=== PATIENT | female | born 1945 | race Caucasian/White ===

== ENCOUNTER 2022-03-25 11:18 | Outpatient (CLI) | payer MEDICARE, OTHER, SELFPAY ==
--- NOTE | 2022-03-25 11:37 | MM_ITS ---
WS: [id number] BILATERAL SCREENING DIGITAL TOMOSYNTHESIS MAMMOGRAM WITH CAD HISTORY: SCREENING COMPARISON: 01/05/2012 Bilateral CC and MLO views with tomosynthesis and synthetic mammography submitted. Computer aided det ection analyzed. Breast composition: There are scattered areas of fibroglandular density. No suspicious masses, microc alcifications or architectural distortion. Benign calcifications and biopsy clip LEFT breast near 3:0 0. No interval change. MM/[place] [id number] IMPRESSION: BI-RADS: 2-Benign FOLLOW UP: 1 Year Follow-up
== END 2022-03-25 11:19 | disposition home or self-care (01) ==
LOC: RAD 11:21
PROVIDERS: Family Provider Family Medicine; Visit Provider Family Medicine
DX: Z12.31 Encounter for screening mammogram for malignant neoplasm of breast (principal)
CPT/HCPCS: 77063; 77067

== ENCOUNTER 2022-12-16 12:49 | Outpatient (CLI) | payer MEDICARE, OTHER, SELFPAY ==
--- NOTE | 2022-12-16 12:59 | XR_ITS ---
WS: [id number] SCREENING DEXA SCAN [employer] CLINICAL INFORMATION: POSTMENOPAUSAL COMPARISON: None. FINDINGS: The L1-L4 bone mineral density measures 1.131 g/cm2. This corresponds to a T score score of -0.4 and Z score of 0.2. Left femoral neck bone mineral density measures 0.867 g/cm2. This corresponds to a T score of -1.1 an d Z score of -0.2. Right femoral neck bone mineral density measures 0.859 g/cm2. This corresponds to a T score -1.2of an d Z score of -0.3. Mean femoral neck bone mineral density measures 0.863 g/cm2. This corresponds to a T score of -1.1 an d Z score of -0.2. IMPRESSION: Normal bone mineralization lumbar spine. Osteopenia femoral necks. Patient's FRAX calculated 10 year probability for major osteoporotic fracture is 24.2% and osteoporot ic hip fracture is 14.7%.
== END 2022-12-16 12:50 | disposition home or self-care (01) ==
PROVIDERS: PCP Family Medicine; Visit Provider Family Medicine
DX: Z13.820 Encounter for screening for osteoporosis (principal); Z78.0 Asymptomatic menopausal state; M85.852 Other specified disorders of bone density and structure, left thigh; M85.851 Other specified disorders of bone density and structure, right thigh
CPT/HCPCS: 77080

== ENCOUNTER 2023-03-09 13:29 | Emergency (ER) | payer MEDICARE, OTHER, SELFPAY ==
[2023-03-09 13:38] VITALS: BP 141/80; PULSE 73; RESP 15; TEMP 36.7; O2SAT 96; BMI 37.0
[2023-03-09 14:47] VITALS: BP 160/74; PULSE 75; RESP 17; O2SAT 95
[2023-03-09 14:55] LABS: Basophils # 0.1 10^3/uL (0.0-0.1); Basophils % 0.6 %; Eosinophils % 0.3 %; Hematocrit 34.3 % (36-47); Lymphocytes # 2.2 10^3/uL (0.8-4.8); Lymphocytes % 16.1 %; Mean Corpuscular HGB Conc 33.2 g/dL (30-55); Mean Corpuscular Hemoglobin 31.1 pg (27-33); Mean Corpuscular Volume 93.5 fl (85-98); Mean Platelet Volume 8.9 fL (7.4-10.4); Monocytes # 0.7 10^3/uL (0.2-0.9); Monocytes % 4.9 %; Neutrophils # 10.76 10^3/uL (1.8-7.7); Neutrophils % 77.4 %; Nucleated Red Blood Cells % 0 %; Platelet Count 496 10^3/cmm (157-399); Red Blood Count 3.67 10^6/uL (3.85-5.65); Red Cell Distribution Width 12.6 % (12.1-15.1); White Blood Count 13.89 10^3/uL (3.29-11.43)
[2023-03-09 15:09] LABS: Specific Gravity, Urine 1.025 (1.005-1.030); Urine Appearance Cloudy (CLEAR); Urine Color Yellow (Yellow); pH Urine 5 (5-7)
[2023-03-09 15:10] LABS: Add Urine Microscopic? YES; Bilirubin Urine Neg (Negative); Blood Urine 2+ (Negative); Glucose Urine UA Norm (Normal); Ketones Urine Negative (Negative); Leukocyte Esterase Urine 2+ (Negative); Nitrate Urine Negative (Negative); Protein Urine Neg (Negative); Urobilinogen Urine Norm (Negative)
[2023-03-09 15:16] LABS: Amorphous Sediment Urine TRACE /hpf; Bacteria Urine TRACE /hpf; Hyaline Casts Urine 0-4 /lpf; Mucus Urine 2+ /hpf; RBC Urine 0-4 /hpf (0-2); WBC Urine 15-25 /hpf (0-5)
[2023-03-09 15:17] LABS: Add Urine Culture? Yes; Other Casts Urine WBC CAST 5-10 /lpf
[2023-03-09 15:18] LABS: Alanine Aminotransferase 11 U/L (0-33); Albumin Level 4.2 g/dL (3.5-5.2); Alkaline Phosphatase 146 U/L (35-105); Anion Gap 18.6 (5-19); Aspartate Amino Transferase 20 U/L (0-32); Blood Urea Nitrogen 50 mg/dL (8-23); Calcium 10.6 mg/dL (8.5-10.5); Carbon Dioxide 23 mmol/L (22-29); Chloride 103 mmol/L (98-107); Globulin 3.9 g/dL (1.3-4.6); Glucose 173 mg/dL (65-115); Lipase 29 U/L (13-60); Magnesium 2.2 mg/dL (1.7-2.3); Osmolality Calculated 307 mOsm/kg (285-295); Potassium 4.6 mmol/L (3.5-5.1); Sodium 140 mmol/L (136-145); Total Bilirubin 0.3 mg/dL (0.15-1.2); Total Protein 8.1 g/dL (6.6-8.7)
--- NOTE | 2023-03-09 15:39 | ED_ITS ---
HPI - Nausea/Vomiting/Diarrhea 2 General: Chief complaint: Nausea/Vomiting/Diarrhea Stated complaint: N/V, Dizzy Time Seen by Provider: 03/09/23 14:32 History of Present Illness: Patient presents to the ER with complaints of nausea and vomiting. This started around 2:00 this morning. Patient stays has been consistent and she is not able to keep any of her medicine down. Patient says she was did not feel this way yesterday. Patient states she began Effexor yesterday and could not tolerate it at all. However this did not cause the nausea and vomiting immediately as she took it yesterday morning. She said this may or may not be the cause. Review of Systems 2 General: Reports: 10 or more systems reviewed and unremarkable except in HPI and below Physical Exam 2 Const: COMMON NORMALS: no acute distress, average body habitus, patient oriented x3, no limitations, healthy appearing, alert and well nourished HENMT: COMMON NORMALS: normocephalic, atraumatic, hearing grossly normal bilaterally, external ears normal, Normal external nose present, moist oral mucous membranes and oropharynx normal HEAD & SCALP: normocephalic and atraumatic NOSE: Normal external nose present EXTERNAL EAR: Yes external ears normal Eye: COMMON NORMALS: Equal, round and reactive pupils present, EOMs intact bilaterally, conjunctivae normal and no scleral icterus CONJUNCTIVA: Yes conjunctivae normal PUPIL: Yes Equal, round and reactive pupils present Neck/C-Spine: COMMON NORMALS: full ROM, no lymphadenopathy, supple, no meningeal signs, no JVD and Thyroid normal THYROID: Thyroid normal Chest: COMMONS NORMALS: normal inspection of the chest and normal palpation of entire chest wall Resp: COMMON NORMALS: normal respiratory effort, No retractions, No use of accessory muscles and clear to auscultation bilaterally AUSCULTATION: clear to auscultation bilaterally Cardio: COMMON NORMALS: no JVD, regular rate, regular rhythm, S1 normal heart sound present, S2 normal heart sound present, No gallops present (Cardio), No clicks present (Cardio), No murmurs present (Cardio) and No rub (Cardio) R ATE: regular rate RHYTHM: regular rhythm HEART SOUNDS: S1 normal heart sound present and S2 normal heart sound present GI: COMMON NORMALS: Normal to inspection, nondistended, normoactive bowel sounds present, Soft to palpation, non-tender, No hepatosplenomegaly present and no masses PALPATION: Yes Soft to palpation and Yes No hepatosplenomegaly present Neuro: COMMON NORMALS: patient oriented x3 SENSORIUM/ORIENTATION: Yes alert MENINGEAL SIGNS: Yes no meningeal signs Course 2 Vital Signs: Vital signs: Vital Signs Temperature 98.1 F 03/09/23 13:38 Pulse Rate 90 03/09/23 17:12 Respiratory Rate 16 03/09/23 17:12 Blood Pressure 160/74 03/09/23 14:47 Pulse Oximetry 99 03/09/23 17:12 Oxygen Delivery Me thod Room Air 03/09/23 14:47 MDM - Nausea/Vomiting/Diarrhea Medical Decision Making Patient presents to the ER with intermittent nausea vomiting and back pain. Patient had routine lab work done that included but not limited to the CBC CMP lipase, this showedWhite blood cell count of 13.8,hemoglobin and hematocrit of 11.4 and 34.3, BUN/creatinine of 50 and 1.0. Urinalysis showed 2+ leukocyte Estrace, 15-25 white blood cells, patient was given 1 L normal saline bolus, Zofran 4 mg IVP, ciprofloxacin 500 mg p.o., patient is feeling better. Patient will be discharged home on oral Cipro and Zofran. Patient should follow-up with her PCP for further evaluation testing within the next 7 to 10 days. Differential Diagnosis Likely gastroenteritis and dehydration; Unlikely traveler's diarrhea, food poisoning, clostridium difficile infection or drug-induced nausea and vomiting Medical Records I reviewed the patient's medical records. Lab Data I reviewed the patient's lab results. 03/09/23 14:42 03/09/23 14:42 Laboratory Results WBC 13.89 10^3/uL (3.29-11.43) H 03/09/23 14:42 RBC 3.67 10^6/uL (3.85-5.65) L 03/09/23 14:42 Hgb 11.40 g/dL (11.27-16.99) 03/09/23 14:42 Hct 34.3 % (36-47) L 03/09/23 14:42 MCV 93.5 fl (85-98) 03/09/23 14:42 MCH 31.1 pg (27-33) 03/09/23 14:42 MCHC 33.2 g/dL (30-55) 03/09/23 14:42 RDW 12.6 % (12.1-15.1) 03/09/23 14:42 Plt Count 496 10^3/cmm (157-399) H 03/09/23 14:42 MPV 8.9 fL (7.4-10.4) 03/09/23 14:42 Neut % (Auto) 77.4 % 03/09/23 14:42 Lymph % (Auto) 16.1 % 03/09/23 14:42 [place] % (Auto) 4.9 % 03/09/23 14:42 Eos % (Auto) 0.3 % 03/09/23 14:42 Baso % (Auto) 0.6 % 03/09/23 14:42 Neut # (Auto) 10.76 10^3/uL (1.8-7.7) H 03/09/23 14:42 Lymph # (Auto) 2.2 10^3/uL (0.8-4.8) 03/09/23 14:42 Edwards # (Auto) 0.7 10^3/uL (0.2-0.9) 03/09/23 14:42 Eos # (Auto) 0.0 10^3/uL (0.0-0.8) 03/09/23 14:42 Baso # (Auto) 0.1 10^3/uL (0.0-0.1) 03/09/23 14:42 Nucleated RBC % (auto) 0 % 03/09/23 14:42 Nucleated RBCs # 0.0 /100WBC 03/09/23 14:42 Sodium 140 mmol/L (136-145) 03/09/23 14:42 Potassium 4.6 mmol/L (3.5-5.1) 03/09/23 14:42 Chloride 103 mmol/L (98-107) 03/09/23 14:42 Carbon Dioxide 23 mmol/L (22-29) 03/09/23 14:42 Anion Gap 18.6 (5-19) 03/09/23 14:42 BUN 50 mg/dL (8-23) H 03/09/23 14:42 Creatinine 1.0 mg/dL (0.5-0.9) H 03/09/23 14:42 GFR Calculation Not Reportable 03/09/23 14:42 Glucose 173 mg/dL (65-115) H 03/09/23 14:42 Calculated Osmolality 307 mOsm/kg (285-295) H 03/09/23 14:42 Calcium 10.6 mg/dL (8.5-10.5) H 03/09/23 14:42 Magnesium 2.2 mg/dL (1.7-2.3) 03/09/23 14:42 Total Bilirubin 0.3 mg/dL (0.15-1.2) 03/09/23 14:42 AST 20 U/L (0-32) 03/09/23 14:42 ALT 11 U/L (0-33) 03/09/23 14:42 Alkaline Phosphatase 146 U/L (35-105) H 03/09/23 14:42 Total Protein 8.1 g/dL (6.6-8.7) 03/09/23 14:42 Albumin 4.2 g/dL (3.5-5.2) 03/09/23 14:42 Globulin 3.9 g/dL (1.3-4.6) 03/09/23 14:42 Lipase 29 U/L (13-60) 03/09/23 14:42 Urine Color Yellow (Yellow) 03/09/23 14:45 Urine Appearance Cloudy (CLEAR) A 03/09/23 14:45 Urine pH 5 (5-7) 03/09/23 14:45 Ur Specific [place] 1.025 (1.005-1.030) 03/09/23 14:45 Urine Protein Neg (Negative) 03/09/23 14:45 Urine Glucose (UA) Norm (Normal) 03/09/23 14:45 Urine Ketones Negative (Negative) 03/09/23 14:45 Urine Blood 2+ (Negative) H 03/09/23 14:45 Urine Nitrate Negative (Negative) 03/09/23 14:45 Urine Bilirubin Neg (Negative) 03/09/23 14:45 Urine Urobilinogen Norm mg/dL (Negative) 03/09/23 14:45 Ur Leukocyte Esterase 2+ (Negative) H 03/09/23 14:45 Urine RBC 0-4 /hpf (0-2) H 03/09/23 14:45 Urine WBC 15-25 /hpf (0-5) H 03/09/23 14:45 Ur Squamous Epith Cells 5-10 /hpf (0-5) H 03/09/23 14:45 Ur Transition Epith Cell 5-10 /hpf 03/09/23 14:45 Ur Renal Epithelial Cell 3-5 /hpf 03/09/23 14:45 Amorphous Sediment Trace /hpf 03/09/23 14:45 Urine Bacteria Trace /hpf (NONE) 03/09/23 14:45 Hyaline Casts 0-4 /lpf H 03/09/23 14:45 Fine Granular Casts 5-10 /lpf H 03/09/23 14:45 Other Casts Wbc cast 5-10 /lpf 03/09/23 14:45 Urine Mucus 2+ /hpf 03/09/23 14:45 No radiology studies performed this visit Discharge Plan Discharge Patient Disposition: Home Clinical Impression: Nausea & vomiting Qualifiers: Vomiting type: unspecified Qualified Code(s): R11.2 - Nausea with vomiting, unspecified Urinary tract infection Qualifiers: Urinary tract infection type: acute cystitis Hematuria presence: with hematuria Qualified Code(s): N30.01 - Acute cystitis with hematuria Condition: Stable Prescriptions: New ciprofloxacin HCl 500 mg tablet 500 mg PO Q12H Qty: 20 0RF ondansetron 4 mg tablet,disintegrating 4 mg PO Q8H PRN (Reason: nausea and vomiting) Qty: 20 0RF No Action losartan 50 mg tablet 50 mg PO DAILY venlafaxine 37.5 mg capsule,extended release 24hr 37.5 mg PO DAILY atenolol 100 mg tablet 100 mg PO BID omeprazole 40 mg capsule,delayed release(DR/EC) 40 mg PO DAILY gabapentin 300 mg capsule 600 mg PO TID PRN (Reason: NERVE PAIN) cyclobenzaprine 5 mg tablet 5 mg PO DAILY PRN (Reason: Muscle Spasm) Discharge Orders: Discharge ED (Routine); Ordered 03/09/23 Ordered By: Godfrey Lacey Referrals: Rico Leigh MD [Primary Care Provider] - 1 week Patient Instructions: Acute Nausea and Vomiting (ED), Urinary Tract Infection in Older Adults (ED) Coding Level of Care Code ED [employer] for Estrellita Jackson
[2023-03-09] MEDS: ondansetron 2 mg/ML SDV 2 mL 4 MG IVP (16:25)
[2023-03-09] MEDS: sodium chloride 0.9% 1,000 ML 999 ML IV (16:28)
[2023-03-09] MEDS: ciprofloxacin 500 mg Tablet PO (16:29)
[2023-03-09 17:12] VITALS: PULSE 90; RESP 16; O2SAT 99
[2023-03-09 17:34] VITALS: BP 167/83; PULSE 77; RESP 16; O2SAT 95
[2023-03-09 17:56] VITALS: BP 167/83; PULSE 77; RESP 16; TEMP 36.7; O2SAT 95
== END 2023-03-09 17:57 | disposition home or self-care (01) ==
PROVIDERS: Emergency Provider Emergency Medicine; PCP Family Medicine
DX: R11.2 Nausea with vomiting, unspecified (principal); N30.01 Acute cystitis with hematuria
CPT/HCPCS: 36415; 80053; 81001; 83690; 83735; 85025; 87086; 96361; 96374; 99284; J2405; J7030

== ENCOUNTER 2023-03-10 12:51 | Emergency (ER) | payer MEDICARE, OTHER, SELFPAY ==
[2023-03-10 12:59] VITALS: BP 153/81; PULSE 69; RESP 17; TEMP 36.6; O2SAT 97; BMI 34.3
[2023-03-10 13:38] LABS: Basophils # 0.1 10^3/uL (0.0-0.1); Basophils % 0.6 %; Eosinophils % 0.2 %; Lymphocytes # 2.6 10^3/uL (0.8-4.8); Lymphocytes % 21.7 %; Mean Corpuscular HGB Conc 33.4 g/dL (30-55); Mean Corpuscular Hemoglobin 30.8 pg (27-33); Mean Corpuscular Volume 92.2 fl (85-98); Mean Platelet Volume 8.9 fL (7.4-10.4); Monocytes # 0.8 10^3/uL (0.2-0.9); Neutrophils # 8.39 10^3/uL (1.8-7.7); Neutrophils % 69.7 %; Nucleated Red Blood Cells % 0 %; Platelet Count 436 10^3/cmm (157-399); Red Blood Count 3.47 10^6/uL (3.85-5.65); Red Cell Distribution Width 12.5 % (12.1-15.1); White Blood Count 12.05 10^3/uL (3.29-11.43)
[2023-03-10 13:58] LABS: Alanine Aminotransferase 10 U/L (0-33); Alkaline Phosphatase 130 U/L (35-105); Anion Gap 19.2 (5-19); Aspartate Amino Transferase 22 U/L (0-32); Blood Urea Nitrogen 35 mg/dL (8-23); Calcium 10.6 mg/dL (8.5-10.5); Carbon Dioxide 22 mmol/L (22-29); Chloride 104 mmol/L (98-107); Creatinine Clr Calc Pharmacy 66.2877; Globulin 3.5 g/dL (1.3-4.6); Glucose 151 mg/dL (65-115); Osmolality Calculated 303 mOsm/kg (285-295); Potassium 4.2 mmol/L (3.5-5.1); Sodium 141 mmol/L (136-145); Total Bilirubin 0.3 mg/dL (0.15-1.2); Total Protein 7.5 g/dL (6.6-8.7)
--- NOTE | 2023-03-10 16:13 | ED_ITS ---
HPI - Nausea/Vomiting/Diarrhea 2 General: Chief complaint: Nausea/Vomiting/Diarrhea Stated complaint: NV,weakness Time Seen by Provider: 03/10/23 15:35 History of Present Illness: Patient presents today with complaints of nausea and vomiting. Patient was seen yesterday by myself and ER with nausea vomiting and UTI and was sent home on Cipro and Zofran. Patient stated that the Zofran helped good when she was here in the ER but when she went home and tried taking the pills it did not work very good at all. Patient took 3 pills at a time early last night which should help her make it through the night. But when patient got up this morning she felt horrible with nausea and dry heaving. And began taking the pills again but they did not help this time. So patient came in for further evaluation. Patient is asking to drink water immediately upon arrival into the room. Review of Systems 2 General: Reports: 10 or more systems reviewed and unremarkable except in HPI and below Physical Exam 2 Const: COMMON NORMALS: no acute distress, average body habitus, patient oriented x3, no limitations, healthy appearing, alert and well nourished Neck/C-Spine: COMMON NORMALS: no JVD Chest: COMMONS NORMALS: normal inspection of the chest and normal palpation of entire chest wall Resp: COMMON NORMALS: normal respiratory effort, No retractions, No use of accessory muscles and clear to auscultation bilaterally AUSCULTATION: clear to auscultation bilaterally Cardio: COMMON NORMALS: no JVD, regular rate, regular rhythm, S1 normal heart sound present, S2 normal heart sound present, No gallops present (Cardio), No clicks present (Cardio), No murmurs present (Cardio) and No rub (Cardio) R ATE: regular rate RHYTHM: regular rhythm HEART SOUNDS: S1 normal heart sound present and S2 normal heart sound present GI: COMMON NORMALS: Normal to inspection, nondistended, normoactive bowel sounds present, Soft to palpation, non-tender, No hepatosplenomegaly present and no masses PALPATION: Yes Soft to palpation and Yes No hepatosplenomegaly present Neuro: COMMON NORMALS: patient oriented x3 SENSORIUM/ORIENTATION: Yes alert Course 2 Vital Signs: Vital signs: Vital Signs Temperature 97.9 F 03/10/23 12:59 Pulse Rate 69 03/10/23 12:59 Respiratory Rate 17 03/10/23 12:59 Blood Pressure 153/81 03/10/23 12:59 Pulse Oximetry 97 03/10/23 12:59 Oxygen Delivery Me thod Room Air 03/10/23 12:59 MDM - Nausea/Vomiting/Diarrhea Medical Decision Making Yesterday's ER visit note was reviewed. new labs was ordered today and compared to the ones done yesterday. Patient was given 1 L bolus normal saline and 8 mg Zofran, 5 mg Reglan and Cipro 500 mg p.o. Patient kept all these down and her nausea was much improved. Patient be discharged home with 5 mg Reglan 3 tablets to go home with and a prescription. Patient should continue to use her Cipro as directed. Differential Diagnosis Likely gastroenteritis and dehydration; Unlikely traveler's diarrhea, food poisoning, clostridium difficile infection or drug-induced nausea and vomiting Medical Records I reviewed the patient's medical records. Lab Data I reviewed the patient's lab results. 03/10/23 13:31 03/10/23 13:31 Laboratory Results WBC 12.05 10^3/uL (3.29-11.43) H 03/10/23 13:31 RBC 3.47 10^6/uL (3.85-5.65) L 03/10/23 13:31 Hgb 10.70 g/dL (11.27-16.99) L 03/10/23 13:31 Hct 32.0 % (36-47) L 03/10/23 13:31 MCV 92.2 fl (85-98) 03/10/23 13:31 MCH 30.8 pg (27-33) 03/10/23 13:31 MCHC 33.4 g/dL (30-55) 03/10/23 13:31 RDW 12.5 % (12.1-15.1) 03/10/23 13:31 Plt Count 436 10^3/cmm (157-399) H 03/10/23 13:31 MPV 8.9 fL (7.4-10.4) 03/10/23 13:31 Neut % (Auto) 69.7 % 03/10/23 13:31 Lymph % (Auto) 21.7 % 03/10/23 13:31 [place] % (Auto) 7.0 % 03/10/23 13:31 Eos % (Auto) 0.2 % 03/10/23 13:31 Baso % (Auto) 0.6 % 03/10/23 13:31 Neut # (Auto) 8.39 10^3/uL (1.8-7.7) H 03/10/23 13:31 Lymph # (Auto) 2.6 10^3/uL (0.8-4.8) 03/10/23 13:31 [place] # (Auto) 0.8 10^3/uL (0.2-0.9) 03/10/23 13:31 Eos # (Auto) 0.0 10^3/uL (0.0-0.8) 03/10/23 13:31 Baso # (Auto) 0.1 10^3/uL (0.0-0.1) 03/10/23 13:31 Nucleated RBC % (auto) 0 % 03/10/23 13:31 Nucleated RBCs # 0.0 /100WBC 03/10/23 13:31 Sodium 141 mmol/L (136-145) 03/10/23 13:31 Potassium 4.2 mmol/L (3.5-5.1) 03/10/23 13:31 Chloride 104 mmol/L (98-107) 03/10/23 13:31 Carbon Dioxide 22 mmol/L (22-29) 03/10/23 13:31 Anion Gap 19.2 (5-19) H 03/10/23 13:31 BUN 35 mg/dL (8-23) H 03/10/23 13:31 Creatinine 0.8 mg/dL (0.5-0.9) 03/10/23 13:31 GFR Calculation Not Reportable 03/10/23 13:31 Glucose 151 mg/dL (65-115) H 03/10/23 13:31 Calculated Osmolality 303 mOsm/kg (285-295) H 03/10/23 13:31 Calcium 10.6 mg/dL (8.5-10.5) H 03/10/23 13:31 Magnesium 2.0 mg/dL (1.7-2.3) 03/10/23 13:31 Total Bilirubin 0.3 mg/dL (0.15-1.2) 03/10/23 13:31 AST 22 U/L (0-32) 03/10/23 13:31 ALT 10 U/L (0-33) 03/10/23 13:31 Alkaline Phosphatase 130 U/L (35-105) H 03/10/23 13:31 Total Protein 7.5 g/dL (6.6-8.7) 03/10/23 13:31 Albumin 4.0 g/dL (3.5-5.2) 03/10/23 13:31 Globulin 3.5 g/dL (1.3-4.6) 03/10/23 13:31 Urine Color Yellow (Yellow) 03/10/23 16:00 Urine Appearance Cloudy (CLEAR) A 03/10/23 16:00 Urine pH 5 (5-7) 03/10/23 16:00 Ur Specific [place] 1.020 (1.005-1.030) 03/10/23 16:00 Urine Protein Neg (Negative) 03/10/23 16:00 Urine Glucose (UA) Norm (Normal) 03/10/23 16:00 Urine Ketones 1+ (Negative) H 03/10/23 16:00 Urine Blood Trace (Negative) H 03/10/23 16:00 Urine Nitrate Negative (Negative) 03/10/23 16:00 Urine Bilirubin Neg (Negative) 03/10/23 16:00 Urine Urobilinogen Norm mg/dL (Negative) 03/10/23 16:00 Ur Leukocyte Esterase Trace (Negative) H 03/10/23 16:00 Urine RBC Rare /hpf (0-2) 03/10/23 16:00 Urine WBC 0-4 /hpf (0-5) H 03/10/23 16:00 Ur Squamous Epith Cells 0-4 /hpf (0-5) H 03/10/23 16:00 Amorphous Sediment Not Reportable 03/10/23 16:00 Urine Bacteria 1+ /hpf (NONE) H 03/10/23 16:00 Hyaline Casts 0-4 /lpf H 03/10/23 16:00 All radiology interpretation(s) finalized by discharge Discharge Plan Discharge Patient Disposition: Home Clinical Impression: Nausea & vomiting Qualifiers: Vomiting type: unspecified Qualified Code(s): R11.2 - Nausea with vomiting, unspecified Condition: Stable Prescriptions: New Reglan 5 mg tablet 5 mg PO Q4H PRN (Reason: nausea and vomiting) Qty: 20 0RF No Action losartan 50 mg tablet 50 mg PO DAILY atenolol 100 mg tablet 100 mg PO BID omeprazole 40 mg capsule,delayed release(DR/EC) 40 mg PO DAILY gabapentin 300 mg capsule 600 mg PO TID PRN (Reason: NERVE PAIN) cyclobenzaprine 5 mg tablet 5 mg PO DAILY PRN (Reason: Muscle Spasm) ondansetron 4 mg tablet,disintegrating 4 mg PO Q8H PRN (Reason: nausea and vomiting) Qty: 20 0RF ciprofloxacin HCl 500 mg tablet 500 mg PO Q12H Qty: 20 0RF Discharge Orders: Discharge ED (Routine); Ordered 03/10/23 Ordered By: Godfrey Lacey Referrals: Rico Leigh MD [Primary Care Provider] - 1 week Patient Instructions: Acute Nausea and Vomiting (ED) Activity Restrictions/Additional Instructions: please use the Reglan as needed as prescribed for nausea and vomiting. Please continue your Cipro as directed. Please follow-up with your family practice physician within the next 7 to 10 days for further evaluation and treatment as needed. Please return to the ER if this does not control your nausea and vomiting. Print Language: Tajik Coding Level of Care Code ED [employer] for Estrellita Jackson
[2023-03-10] MEDS: sodium chloride 0.9% 1,000 ML 999 ML IV (16:16)
[2023-03-10] MEDS: ondansetron 2 mg/ML SDV 2 mL 8 MG IVP ×2 (16:29→19:17)
[2023-03-10 16:38] LABS: Add Urine Microscopic? YES; Bilirubin Urine Neg (Negative); Blood Urine Trace (Negative); Glucose Urine UA Norm (Normal); Ketones Urine 1+ (Negative); Leukocyte Esterase Urine Trace (Negative); Nitrate Urine Negative (Negative); Protein Urine Neg (Negative); Urine Appearance Cloudy (CLEAR); Urine Color Yellow (Yellow); Urobilinogen Urine Norm (Negative); pH Urine 5 (5-7)
[2023-03-10 16:40] LABS: RBC Urine RARE /hpf (0-2); WBC Urine 0-4 /hpf (0-5)
[2023-03-10 16:41] LABS: Bacteria Urine 1+ /hpf; Hyaline Casts Urine 0-4 /lpf; Squamous Epithelial Cell Urine 0-4 /hpf (0-5)
[2023-03-10] MEDS: ciprofloxacin 500 mg Tablet PO (18:06)
[2023-03-10] MEDS: metoclopramide 10 mg Tablet 5 MG PO (18:07)
[2023-03-10] MEDS: metoclopramide 10 mg Tablet 15 MG PO (19:17)
== END 2023-03-10 19:34 | disposition home or self-care (01) ==
PROVIDERS: Physician Assistant; Emergency Provider Emergency Medicine; PCP Family Medicine
DX: R11.2 Nausea with vomiting, unspecified (principal)
CPT/HCPCS: 36415; 80053; 81001; 83735; 85025; 96361; 96374; 96376; 99284; J2405; J7030; J8597

== ENCOUNTER 2023-05-25 17:48 | Outpatient (CLI) | payer MEDICARE, OTHER, SELFPAY ==
[2023-05-25 19:25] LABS: Add Urine Microscopic? YES; Bilirubin Urine Neg (Negative); Blood Urine 3+ (Negative); Glucose Urine UA Norm (Normal); Ketones Urine Negative (Negative); Leukocyte Esterase Urine 2+ (Negative); Nitrate Urine Negative (Negative); Protein Urine 2+ (Negative); Urine Appearance Cloudy (CLEAR); Urine Color Yellow (Yellow); Urobilinogen Urine Norm (Negative); pH Urine 5 (5-7)
[2023-05-25 19:41] LABS: Add Urine Culture? Yes; Bacteria Urine TRACE /hpf; Mucus Urine TRACE /hpf; RBC Urine 25-40 /hpf (0-2); Squamous Epithelial Cell Urine 0-4 /hpf (0-5); WBC Urine TOO NUMEROUS TO CNT /hpf (0-5)
== END 2023-05-25 17:49 | disposition home or self-care (01) ==
LOC: LAB 17:52
PROVIDERS: PCP Family Medicine; Visit Provider Family Medicine
DX: Z01.89 Encounter for other specified special examinations (principal)
CPT/HCPCS: 81001; 87086

== ENCOUNTER 2023-06-01 13:02 | Outpatient (CLI) | payer MEDICARE, OTHER, SELFPAY ==
[2023-06-01 13:39] LABS: Add Urine Microscopic? YES; Bilirubin Urine Neg (Negative); Blood Urine 3+ (Negative); Glucose Urine UA Norm (Normal); Ketones Urine 1+ (Negative); Leukocyte Esterase Urine 2+ (Negative); Nitrate Urine Negative (Negative); Protein Urine 1+ (Negative); Urine Appearance Cloudy (CLEAR); Urine Color Yellow (Yellow); Urobilinogen Urine Neg (Negative); pH Urine 6 (5-7)
[2023-06-01 13:40] LABS: Add Urine Culture? Yes; Bacteria Urine 2+ /hpf; Mucus Urine 1+ /hpf; Squamous Epithelial Cell Urine 0-4 /hpf (0-5); WBC Urine TOO NUMEROUS TO CNT /hpf (0-5)
== END 2023-06-01 13:03 | disposition home or self-care (01) ==
LOC: LAB 13:02
PROVIDERS: PCP Family Medicine; Visit Provider Family Medicine
DX: Z01.89 Encounter for other specified special examinations (principal)
CPT/HCPCS: 81001; 87086

== ENCOUNTER 2023-08-29 14:02 | Outpatient (CLI) | payer MEDICARE, OTHER, SELFPAY ==
--- NOTE | 2023-08-29 14:08 | US_ITS ---
WS: [id number] RENAL ULTRASOUND HISTORY: OTHER ACUTE KIDNEY FAILURE COMPARISON: None available. TECHNIQUE: 2-D and color Doppler imaging of the kidney submitted. Right kidney: 9.8 cm x 5.6 cm x 6.6 cm. Cortex: 1.2 cm Normal echogenicity with no hydronephrosis or mass. Left kidney: 9.8 cm x 5.6 cm x 4.7 cm. Cortex: 1.3 cm Normal size kidney. Exophytic cyst from the superior pole measures 1.3 x 1.9 x 1.4 cm. No solid mass. No hydronephrosis. Aorta: Normal. Urinary Bladder: Layering debris in the urinary bladder is mobile. No increased vascularity. US/US renal BI* [id number] IMPRESSION: 1. No hydronephrosis. Normal size kidneys. 2. Exophytic cyst superior pole LEFT kidney measures 1.3 x 1.9 x 1.4 cm. 3. Layering debris in the urinary bladder. This may be secondary to infection or blood. Nonvascular.
== END 2023-08-29 14:03 | disposition home or self-care (01) ==
LOC: RAD 14:03
PROVIDERS: PCP Family Medicine; Visit Provider Internal Medicine Nephrology
DX: N17.8 Other acute kidney failure (principal); N28.1 Cyst of kidney, acquired
CPT/HCPCS: 76770

== ENCOUNTER → 2023-09-26 14:43 | Outpatient (BNVA) | payer MEDICARE, OTHER, SELFPAY | PROVIDERS: PCP Family Medicine; Visit Provider Obstetrics & Gynecology | DX: Z01.419 Encounter for gynecological examination (general) (routine) without abnormal findings (principal) | CPT/HCPCS: 87624 ==

== ENCOUNTER → 2023-10-17 13:21 | Outpatient (BNVA) | payer MEDICARE, OTHER, SELFPAY | PROVIDERS: PCP Family Medicine; Visit Provider Obstetrics & Gynecology | DX: R10.2 Pelvic and perineal pain (principal) | CPT/HCPCS: 76856 ==

== ENCOUNTER 2024-04-11 09:16 | Outpatient (CLI) | payer MEDICARE, OTHER, SELFPAY | END 2024-04-11 09:17 | disposition home or self-care (01) | LOC: LAB 09:25 | PROVIDERS: PCP Family Medicine; Visit Provider Obstetrics & Gynecology Gynecology | DX: N39.0 Urinary tract infection, site not specified (principal) | CPT/HCPCS: 87086 ==

== ENCOUNTER 2024-06-04 14:54 | Outpatient (RCR) | payer MEDICARE, OTHER, SELFPAY | END 2024-06-07 23:59 | disposition home or self-care (01) | LOC: SPT 14:54 | PROVIDERS: Visit Provider Obstetrics & Gynecology Gynecology | DX: R10.2 Pelvic and perineal pain (principal); N81.10 Cystocele, unspecified | CPT/HCPCS: 97161 ==

== ENCOUNTER 2024-06-08 06:30 | Outpatient (RCR) | payer MEDICARE, OTHER, SELFPAY | END 2024-07-08 23:59 | disposition home or self-care (01) | LOC: SPT 06:30 | PROVIDERS: Visit Provider Obstetrics & Gynecology Gynecology | DX: R10.2 Pelvic and perineal pain (principal); N81.10 Cystocele, unspecified | CPT/HCPCS: 97110; 97530 ==

== ENCOUNTER 2024-07-09 05:00 | Outpatient (RCR) | payer MEDICARE, OTHER, SELFPAY | END 2024-08-07 23:59 | disposition home or self-care (01) | LOC: SPT 05:00 | PROVIDERS: Visit Provider Obstetrics & Gynecology Gynecology | DX: R10.2 Pelvic and perineal pain (principal); N81.0 Urethrocele | CPT/HCPCS: 97110; 97530 ==

== ENCOUNTER 2024-08-08 05:00 | Outpatient (RCR) | payer MEDICARE, OTHER, SELFPAY | END 2024-09-07 23:59 | disposition home or self-care (01) | LOC: SPT 05:00 | PROVIDERS: Visit Provider Obstetrics & Gynecology Gynecology | DX: R10.2 Pelvic and perineal pain (principal); N81.10 Cystocele, unspecified | CPT/HCPCS: 97110 ==

== ENCOUNTER 2024-09-08 05:00 | Outpatient (RCR) | payer MEDICARE, OTHER, SELFPAY | END 2024-10-07 23:59 | disposition home or self-care (01) | LOC: SPT 05:00 | PROVIDERS: Visit Provider Obstetrics & Gynecology Gynecology | DX: R10.2 Pelvic and perineal pain (principal); N81.10 Cystocele, unspecified | CPT/HCPCS: 97110 ==

== ENCOUNTER 2024-10-08 05:00 | Outpatient (RCR) | payer MEDICARE, OTHER, SELFPAY | END 2024-11-07 23:59 | disposition home or self-care (01) | LOC: SPT 05:00 | PROVIDERS: Visit Provider Obstetrics & Gynecology Gynecology | DX: R10.2 Pelvic and perineal pain (principal); N81.10 Cystocele, unspecified | CPT/HCPCS: 97110 ==

== ENCOUNTER 2024-12-09 05:00 | Outpatient (RCR) | payer MEDICARE, OTHER, SELFPAY | END 2024-12-11 15:49 | disposition home or self-care (01) | LOC: SPT 05:00 | PROVIDERS: Visit Provider Obstetrics & Gynecology Gynecology | DX: R10.2 Pelvic and perineal pain (principal); N81.10 Cystocele, unspecified | CPT/HCPCS: 97110 ==